=== PATIENT | female | born 1955 | race African-American/Black ===

== ENCOUNTER 2024-01-16 13:03 | Inpatient (IN) | payer MEDICARE, MEDICAID ==
[2024-01-16 14:23] LABS: Hematocrit 32.6 % (34.9-44.5); Hemoglobin 10.9 g/dL (12.0-15.5); MDiff Complete? YES; Mean Corpuscular HGB CONC 33.4 g/dL (32.0-36.0); Mean Corpuscular Hemoglobin 30.1 pg (27.0-33.0); Mean Corpuscular Volume 90.1 fl (81.6-98.3); Mean Platelet Volume 10.5 fl (7.4-10.4); Platelet Count 322 10x3/uL (150-450); RBC Distribution Width 12.9 % (11.5-14.5); Red Blood Cell (RBC) Count 3.62 10x6/uL (3.90-5.03); White Blood Cell (WBC) Count 10.2 10x3/uL (3.5-10.5)
[2024-01-16 14:48] LABS: Troponin I Less than 0.010 ng/mL (< 0.028)
[2024-01-16 15:00] LABS: ALT (SGPT) 95 U/L (8-55); AST (SGOT) 76 U/L (5-34); Alkaline Phosphatase 68 U/L (40-110); Anion Gap 18 mmol/L (10-20); BUN (Urea Nitrogen) 53 mg/dL (9.8-20.1); Bilirubin, Total 0.9 mg/dL (0.2-1.2); Calc. Creatinine Clearance 0 mL/min (70-130); Calcium 9.2 mg/dL (7.8-10.44); Carbon Dioxide 20 mmol/L (23-31); Chloride 103 mmol/L (98-107); Estimated GFR 22; Globulin 4.5 g/dL (2.4-3.5); Glucose 212 mg/dL (80-115); Potassium 4.6 mmol/L (3.5-5.1); Protein, Total 7.5 g/dL (5.8-8.1); Sodium 136 mmol/L (136-145)
[2024-01-16 15:10] LABS: Band 13 % (5-11); Eosinophils 2 % (0-10); Lymphocytes 9 % (21-51); Metamyelocyte 1 % (0-0); Monocytes 6 % (0-10); Neutrophil 69 % (42-75)
[2024-01-16 15:13] LABS: Anisocytosis SLIGHT = 6-15 cells (100X) (0-5/hpf)
[2024-01-16 15:14] LABS: Large Platelets SLIGHT (None Seen)
[2024-01-16 15:16] LABS: Platelet Adequacy Comment Appears Adequate
[2024-01-16] MEDS ORDERED: Dextrose 50% Abboject 50 ML SYRINGE SLOW IVP PRN (17:45)
[2024-01-16] MEDS ORDERED: Glucagon 1 MG/ML KIT IM PRN (17:45)
[2024-01-16] MEDS ORDERED: Ondansetron PF 4 MG/2 ML Vial IVP PRN (17:45)
[2024-01-16] MEDS ORDERED: Ondansetron ODT 4 MG TAB PO PRN (17:45)
[2024-01-16] MEDS ORDERED: Dextrose 5% in Water 1,000 ML IV PRN (17:45)
[2024-01-16 17:58] LABS: Troponin I Less than 0.010 ng/mL (< 0.028)
[2024-01-16 18:16] LABS: Iron 29 ug/dL (50-170); Iron Binding Capacity, Total 189 mcg/dL (265-497); Magnesium 2.3 mg/dL (1.6-2.6)
[2024-01-16 18:18] VITALS: BMI 28.9
[2024-01-16] MEDS: Sodium Chloride 0.9% 1,000 ML IV SCH (18:42)
[2024-01-16 20:41] LABS: Troponin I 0.021 ng/mL (< 0.028)
[2024-01-17] MEDS: Acetaminophen 325 MG TAB PO PRN (02:19)
[2024-01-17 05:20] LABS: Hematocrit 34.7 % (34.9-44.5); Hemoglobin 11.6 g/dL (12.0-15.5); Mean Corpuscular HGB CONC 33.4 g/dL (32.0-36.0); Mean Corpuscular Hemoglobin 30.2 pg (27.0-33.0); Mean Corpuscular Volume 90.4 fl (81.6-98.3); Mean Platelet Volume 10.6 fl (7.4-10.4); Platelet Count 366 10x3/uL (150-450); RBC Distribution Width 12.9 % (11.5-14.5); Red Blood Cell (RBC) Count 3.84 10x6/uL (3.90-5.03); White Blood Cell (WBC) Count 13.3 10x3/uL (3.5-10.5)
[2024-01-17 05:26] LABS: MDiff Complete? YES
[2024-01-17 05:27] LABS: ALT (SGPT) 73 U/L (8-55); AST (SGOT) 52 U/L (5-34); Albumin 2.5 g/dL (3.4-4.8); Alkaline Phosphatase 62 U/L (40-110); Anion Gap 15 mmol/L (10-20); BUN (Urea Nitrogen) 52 mg/dL (9.8-20.1); Bilirubin, Total 0.8 mg/dL (0.2-1.2); Calc. Creatinine Clearance 33 mL/min (70-130); Calcium 8.6 mg/dL (7.8-10.44); Carbon Dioxide 18 mmol/L (23-31); Chloride 107 mmol/L (98-107); Estimated GFR 29; Globulin 4.4 g/dL (2.4-3.5); Glucose 166 mg/dL (80-115); Potassium 4.2 mmol/L (3.5-5.1); Protein, Total 6.9 g/dL (5.8-8.1); Sodium 136 mmol/L (136-145)
[2024-01-17 05:55] LABS: Band 10 % (5-11); Eosinophils 2 % (0-10); Lymphocytes 20 % (21-51); Monocytes 8 % (0-10); Neutrophil 58 % (42-75); Platelet Adequacy Comment Appears Adequate; RBC Morph Comment Within Normal Limits; Reactive Lymphocytes 2 % (0-10)
[2024-01-17] MEDS: Lactated Ringer's 1,000 ML IV SCH (10:37)
[2024-01-17] MEDS: HumaLOG 300 UNITS/3 ML VIAL SC PRN (12:06)
[2024-01-17] MEDS: cefTRIAXone\\ROCEPHIN 1 GM in Sodium Chloride 0.9% 100 ML IVPB SCH (17:01)
[2024-01-18 02:42] LABS: Bilirubin Neg (Negative); Blood, Urine 10 (Negative); Clarity Slightly Cloudy (Clear); Glucose, Urine (Dipstick) Normal (Negative); Ketone, Urine Negative (Negative); Leukocyte 500 (Negative); Nitrite Negative (Negative); Protein, Urine (Dipstick) 15 mg/dl (Neg-Trace); Urobilinogen Normal mg/dL (Less than 2)
[2024-01-18 03:01] LABS: Bacteria/HPF 2+ HPF (None Seen); CAUTI Indications for Culture Pelvic or flank pain; RBC/HPF 0-3 HPF (0-3); Squamous Epithelial 0-3 HPF (0-3); WBC/HPF Greater than 50 HPF (0-3)
[2024-01-18 03:03] LABS: Urine Culture Reflex Yes Yes
[2024-01-18 04:27] LABS: Anion Gap 11 mmol/L (10-20); BUN (Urea Nitrogen) 35 mg/dL (9.8-20.1); Calc. Creatinine Clearance 53 mL/min (70-130); Calcium 8.5 mg/dL (7.8-10.44); Carbon Dioxide 21 mmol/L (23-31); Chloride 110 mmol/L (98-107); Estimated GFR 52; Glucose 137 mg/dL (80-115); Potassium 4.2 mmol/L (3.5-5.1); Sodium 138 mmol/L (136-145)
[2024-01-18] MEDS: Enoxaparin 30 MG (0.3 mL) SYRINGE SC SCH (08:35)
[2024-01-18] MEDS: Atorvastatin Calcium 20 MG TAB PO SCH (08:35)
[2024-01-18 12:16] LABS: #Basophils 0.03 10x3/uL (0.0-0.2); #Eosinphils 0.26 10x3/uL (0.0-0.5); #Monocytes 0.91 10x3/uL (0.0-1.1); %Basophils 0.3 % (0.0-2.0); %Eosinophils 2.6 % (0.0-6.0); %Lymphocytes 20.9 % (18.0-47.0); %Monocytes 9.2 % (0.0-10.0); %Neutrophils 66.4 % (40.0-75.0); Hematocrit 29.1 % (34.9-44.5); Hemoglobin 10.2 g/dL (12.0-15.5); Mean Corpuscular HGB CONC 35.1 g/dL (32.0-36.0); Mean Corpuscular Hemoglobin 31.3 pg (27.0-33.0); Mean Corpuscular Volume 89.3 fl (81.6-98.3); Mean Platelet Volume 10.2 fl (7.4-10.4); Platelet Count 327 10x3/uL (150-450); RBC Distribution Width 12.7 % (11.5-14.5); Red Blood Cell (RBC) Count 3.26 10x6/uL (3.90-5.03); White Blood Cell (WBC) Count 9.9 10x3/uL (3.5-10.5)
[2024-01-18 12:21] LABS: Anion Gap 13 mmol/L (10-20); BUN (Urea Nitrogen) 23 mg/dL (9.8-20.1); Calc. Creatinine Clearance 57 mL/min (70-130); Calcium 9.3 mg/dL (7.8-10.44); Carbon Dioxide 22 mmol/L (23-31); Chloride 108 mmol/L (98-107); Estimated GFR 56; Glucose 251 mg/dL (80-115); Magnesium 1.9 mg/dL (1.6-2.6); Potassium 4.7 mmol/L (3.5-5.1); Sodium 138 mmol/L (136-145)
[2024-01-18] MEDS: Carvedilol 3.125 MG TAB PO SCH (21:33)
[2024-01-19 06:05] LABS: #Basophils 0.04 10x3/uL (0.0-0.2); #Eosinphils 0.31 10x3/uL (0.0-0.5); #Monocytes 0.82 10x3/uL (0.0-1.1); %Basophils 0.5 % (0.0-2.0); %Lymphocytes 24.6 % (18.0-47.0); %Monocytes 10.6 % (0.0-10.0); %Neutrophils 59.4 % (40.0-75.0); Hematocrit 26.8 % (34.9-44.5); Hemoglobin 9.3 g/dL (12.0-15.5); Mean Corpuscular HGB CONC 34.7 g/dL (32.0-36.0); Mean Corpuscular Volume 89.3 fl (81.6-98.3); Mean Platelet Volume 10.5 fl (7.4-10.4); Platelet Count 288 10x3/uL (150-450); RBC Distribution Width 12.7 % (11.5-14.5); White Blood Cell (WBC) Count 7.8 10x3/uL (3.5-10.5)
[2024-01-19 06:14] LABS: Anion Gap 13 mmol/L (10-20); BUN (Urea Nitrogen) 11 mg/dL (9.8-20.1); Calc. Creatinine Clearance 67 mL/min (70-130); Calcium 8.8 mg/dL (7.8-10.44); Carbon Dioxide 22 mmol/L (23-31); Chloride 110 mmol/L (98-107); Estimated GFR 68; Glucose 166 mg/dL (80-115); Magnesium 1.6 mg/dL (1.6-2.6); Potassium 4.1 mmol/L (3.5-5.1); Sodium 141 mmol/L (136-145)
[2024-01-19] MEDS: Enoxaparin 40 MG (0.4 mL) SYRINGE SC SCH (08:19)
[2024-01-19] MEDS: Amlodipine 10 MG TAB PO SCH (08:19)
[2024-01-19] MEDS: Magnesium 2 GM/50 ML(in water) 2 GM in Premix 1 BAG IVPB SCH (13:51)
[2024-01-19] MEDS: HumaLOG 300 UNITS/3 ML VIAL SC PRN (21:02)
[2024-01-19] MEDS: Senokot 8.6 MG TAB PO PRN (21:08)
[2024-01-20 05:48] LABS: Anion Gap 13 mmol/L (10-20); BUN (Urea Nitrogen) 6 mg/dL (9.8-20.1); Calc. Creatinine Clearance 69 mL/min (70-130); Calcium 9.2 mg/dL (7.8-10.44); Carbon Dioxide 25 mmol/L (23-31); Chloride 106 mmol/L (98-107); Estimated GFR 71; Glucose 150 mg/dL (80-115); Potassium 4.3 mmol/L (3.5-5.1); Sodium 140 mmol/L (136-145)
[2024-01-20] MEDS: cefTRIAXone\\ROCEPHIN 1 GM in Sodium Chloride 0.9% 100 ML IVPB SCH (09:59)
[2024-01-20] MEDS: hydrALAZINE 25 MG TAB PO PRN (10:07)
[2024-01-20 12:36] VITALS: BP 159/74; TEMP 98.4
== END 2024-01-20 13:00 | disposition home or self-care (01) | DRG 872 ==
LOC: CSHERS 13:03 → CSHTELE 16:45 → OBSVTOIN 01-17 15:25
PROVIDERS: ADMIT Family Medicine; ATTEND Internal Medicine
DX: A41.9 Sepsis, unspecified organism (principal); N17.9 Acute kidney failure, unspecified; N39.0 Urinary tract infection, site not specified; I10 Essential (primary) hypertension; E78.5 Hyperlipidemia, unspecified; E11.9 Type 2 diabetes mellitus without complications; I48.91 Unspecified atrial fibrillation; T78.3XXA Angioneurotic edema, initial encounter; D64.9 Anemia, unspecified; D72.829 Elevated white blood cell count, unspecified; D63.8 Anemia in other chronic diseases classified elsewhere; E86.0 Dehydration; R79.89 Other specified abnormal findings of blood chemistry; Z95.0 Presence of cardiac pacemaker; Z79.899 Other long term (current) drug therapy
CPT/HCPCS: 36415; 36416; 70450; 71045; 71046; 76705; 80048; 80053; 81001; 82274; 82728; 83540; 83550; 83605; 83735; 83880; 84484; 85025; 87040; 87086; 93005; 93306; 93880; 94760; J0696; J1650; J1815; J3475; J3490; J7050; J7120